=== PATIENT | female | born 1940 | race Caucasian/White ===

== ENCOUNTER 2018-01-29 07:30 | Outpatient (CLI) | payer OTHER | END 2018-01-29 08:16 | disposition home or self-care (01) | LOC: LAB 07:30 | DX: I10 Essential (primary) hypertension (principal); E11.9 Type 2 diabetes mellitus without complications; E03.9 Hypothyroidism, unspecified; E78.2 Mixed hyperlipidemia; N39.0 Urinary tract infection, site not specified; R82.79 Other abnormal findings on microbiological examination of urine; M19.90 Unspecified osteoarthritis, unspecified site ==

== ENCOUNTER → 2018-02-21 | Emergency (ER) | payer OTHER ==
[~2018-02-21] VITALS: Ht 147.3 cm; Wt 81.6 kg
[~2018-02-21] MED LIST: AMLODIPINE-VAL1 EAC3; CILOSTAZOL100 MG PO; FORTAMET500 MG; PROLIA60 MG/1 ML; PROTONIX40 M1 PO; TEKTURNA HCT 31 EAC1; ZETIA10 MG; ZOCOR20 MG
== END | disposition home or self-care (01) ==
LOC: ER 06:29
DX: R19.7 Diarrhea, unspecified (principal); R53.81 Other malaise

== ENCOUNTER 2018-04-12 06:22 | Outpatient (CLI) | payer OTHER | END 2018-04-12 06:37 | disposition home or self-care (01) | LOC: RAD 06:22 → LAB 06:22 → RAD 06:37 | DX: D64.89 Other specified anemias (principal); D68.8 Other specified coagulation defects; E03.8 Other specified hypothyroidism; R07.1 Chest pain on breathing ==

== ENCOUNTER → 2018-04-29 | Outpatient (CLI) | payer OTHER ==
[~2018-04-29] MED LIST changes: +AZOR 10-20 MG1 EACH PO; +GLYBURID-METFO1 EACH PO; +INTESTINEX680 M1 PO; +TEKTURNA HCT 31 EAC1 PO; +TRIPLE FLEX CA1 EACH; +ZOCOR20 MG PO
== END | disposition home or self-care (01) ==
LOC: NUCLEAR 11:00
DX: M81.0 Age-related osteoporosis without current pathological fracture (principal)

== ENCOUNTER 2018-05-02 09:00 | Inpatient (IN) | payer OTHER ==
[~2018-05-02] VITALS: Ht 157.5 cm; Wt 68.0 kg
[~2018-05-02 09:00] MED LIST changes: -AZOR 10-20 MG1 EACH PO; -GLYBURID-METFO1 EACH PO; -INTESTINEX680 M1 PO; -TEKTURNA HCT 31 EAC1 PO; -TRIPLE FLEX CA1 EACH; -ZOCOR20 MG PO
[2018-05-02] MEDS ORDERED: GLYBURID-METFO1 EACH PO (11:08)
[2018-05-02] MEDS ORDERED: TEKTURNA HCT 31 EAC1 PO (11:08)
[2018-05-02] MEDS ORDERED: AZOR 10-20 MG1 EACH PO (11:08)
[2018-05-02] MEDS ORDERED: INTESTINEX680 M1 PO (11:09)
[2018-05-02] MEDS ORDERED: ZOCOR20 MG PO (11:09)
[2018-05-02] MEDS ORDERED: TRIPLE FLEX CA1 EACH (11:10)
[2018-05-09] MEDS ORDERED: COLACE100 MG PO (13:40)
[2018-05-09] MEDS ORDERED: PERCOCET 5-3251 EACH PO (13:41)
[2018-05-09] MEDS ORDERED: RESTORIL30 M1 PO (13:41)
== END 2018-05-10 16:16 | DRG 454 ==
LOC: O/R 05-09 05:35 → PED 05-09 05:35 → SURH 05-09 07:00 → PED 05-09 14:46
PROVIDERS: Orthopaedic Surgery Orthopaedic Surgery of the Spine
PROC: 0RG2071 Fusion of 2 or more Cervical Vertebral Joints with Autologous Tissue Substitute, Posterior Approach, Posterior Column, Open Approach (ICD-10-PCS; 2018-05-09)
PROC: 0RT30ZZ Resection of Cervical Vertebral Disc, Open Approach (ICD-10-PCS; 2018-05-09)
PROC: 07DS3ZZ Extraction of Vertebral Bone Marrow, Percutaneous Approach (ICD-10-PCS; 2018-05-09)
PROC: 0RG20A0 Fusion of 2 or more Cervical Vertebral Joints with Interbody Fusion Device, Anterior Approach, Anterior Column, Open Approach (ICD-10-PCS; principal; 2018-05-09 07:00)
DX: M50.01 Cervical disc disorder with myelopathy, high cervical region (principal); M47.12 Other spondylosis with myelopathy, cervical region; G83.82 Anterior cord syndrome; M48.02 Spinal stenosis, cervical region; E11.9 Type 2 diabetes mellitus without complications; I10 Essential (primary) hypertension; K52.89 Other specified noninfective gastroenteritis and colitis

== ENCOUNTER 2018-07-18 07:22 | Outpatient (CLI) | payer OTHER ==
[~2018-07-18 07:22] MED LIST changes: +AZOR 10-20 MG1 EACH PO; +COLACE100 MG PO; +GLYBURID-METFO1 EACH PO; +INTESTINEX680 M1 PO; +PERCOCET 5-3251 EACH PO; +RESTORIL30 M1 PO; +TEKTURNA HCT 31 EAC1 PO; +TRIPLE FLEX CA1 EACH; +ZOCOR20 MG PO
== END 2018-07-18 07:24 | disposition home or self-care (01) ==
LOC: RAD 07:22
DX: M50.00 Cervical disc disorder with myelopathy, unspecified cervical region (principal); Z98.1 Arthrodesis status

== ENCOUNTER → 2018-07-29 06:29 | Outpatient (CLI) | payer OTHER | END | disposition home or self-care (01) | LOC: LAB 06:29 | DX: M81.0 Age-related osteoporosis without current pathological fracture (principal); E21.2 Other hyperparathyroidism ==

== ENCOUNTER 2018-07-29 08:36 | Outpatient (CLI) | payer OTHER | END 2018-07-29 08:43 | disposition home or self-care (01) | LOC: SONOGRAMA 08:36 | DX: M65.811 Other synovitis and tenosynovitis, right shoulder (principal) ==

== ENCOUNTER 2018-08-16 04:56 | Emergency (ER) | payer OTHER ==
[~2018-08-16] VITALS: Ht 152.4 cm; Wt 79.4 kg
== END 2018-08-16 09:16 | disposition home or self-care (01) ==
LOC: ER 04:56
DX: S33.5XXA Sprain of ligaments of lumbar spine, initial encounter (principal); W18.39XA Other fall on same level, initial encounter; Y93.89 Activity, other specified; Y92.098 Other place in other non-institutional residence as the place of occurrence of the external cause; Y99.8 Other external cause status

== ENCOUNTER 2019-01-14 10:57 | Outpatient (CLI) | payer OTHER | END 2019-01-14 11:20 | disposition home or self-care (01) | LOC: RAD 10:57 | DX: M50.00 Cervical disc disorder with myelopathy, unspecified cervical region (principal); Z98.1 Arthrodesis status ==

== ENCOUNTER 2019-07-10 11:17 | Outpatient (CLI) | payer OTHER | END 2019-07-10 11:18 | disposition home or self-care (01) | LOC: RAD 11:17 | DX: M48.02 Spinal stenosis, cervical region (principal); M50.00 Cervical disc disorder with myelopathy, unspecified cervical region; Z98.1 Arthrodesis status ==

== ENCOUNTER 2019-10-17 07:09 | Outpatient (CLI) | payer OTHER | END 2019-10-17 07:13 | disposition home or self-care (01) | LOC: LAB 07:09 | DX: E78.2 Mixed hyperlipidemia (principal); I10 Essential (primary) hypertension; E11.9 Type 2 diabetes mellitus without complications; E03.8 Other specified hypothyroidism ==

== ENCOUNTER 2019-11-13 07:51 | Outpatient (CLI) | payer OTHER | END 2019-11-13 07:54 | disposition home or self-care (01) | LOC: MAMO-SONO 07:51 | DX: Z12.31 Encounter for screening mammogram for malignant neoplasm of breast (principal); Z87.898 Personal history of other specified conditions; N63.11 Unspecified lump in the right breast, upper outer quadrant ==

== ENCOUNTER 2019-12-07 15:15 | Outpatient (CLI) | payer OTHER | END 2019-12-07 15:20 | disposition home or self-care (01) | LOC: LAB 15:15 | DX: Z00.00 Encounter for general adult medical examination without abnormal findings (principal) ==

== ENCOUNTER 2019-12-11 07:21 | Outpatient (CLI) | payer OTHER | END 2019-12-11 09:36 | disposition home or self-care (01) | LOC: TOM 07:21 | DX: K80.80 Other cholelithiasis without obstruction (principal); K63.5 Polyp of colon; N28.89 Other specified disorders of kidney and ureter ==

== ENCOUNTER 2020-04-26 06:09 | Outpatient (CLI) | payer OTHER | END 2020-04-26 06:20 | disposition home or self-care (01) | LOC: LAB 06:09 | PROVIDERS: ATTEND Internal Medicine Cardiovascular Disease | DX: E03.8 Other specified hypothyroidism (principal); I10 Essential (primary) hypertension; E11.9 Type 2 diabetes mellitus without complications; E78.2 Mixed hyperlipidemia ==

== ENCOUNTER 2020-10-25 11:27 | Emergency (ER) | payer OTHER ==
[~2020-10-25] VITALS: Ht 157.5 cm; Wt 88.9 kg
[2020-10-25] MEDS ORDERED: OSTEO BI-FLEX1 EAC1 (11:44)
[2020-10-25] MEDS ORDERED: TURMERIC 500 M1 EACH (11:44)
[2020-10-25] MEDS ORDERED: BAYER CHILDREN'81 MG (11:45)
== END 2020-10-25 19:51 | disposition home or self-care (01) ==
LOC: ER 11:27
DX: S52.252A Displaced comminuted fracture of shaft of ulna, left arm, initial encounter for closed fracture (principal); S52.122A Displaced fracture of head of left radius, initial encounter for closed fracture; S52.132A Displaced fracture of neck of left radius, initial encounter for closed fracture; S52.572A Other intraarticular fracture of lower end of left radius, initial encounter for closed fracture; S53.195A Other dislocation of left ulnohumeral joint, initial encounter; S50.11XA Contusion of right forearm, initial encounter; S00.83XA Contusion of other part of head, initial encounter; W01.0XXA Fall on same level from slipping, tripping and stumbling without subsequent striking against object, initial encounter; Y93.01 Activity, walking, marching and hiking; Y92.488 Other paved roadways as the place of occurrence of the external cause; Y99.8 Other external cause status

== ENCOUNTER 2020-11-25 13:06 | Outpatient (CLI) | payer OTHER ==
[~2020-11-25 13:06] MED LIST changes: +BAYER CHILDREN'81 MG; +OSTEO BI-FLEX1 EAC1; +TURMERIC 500 M1 EACH
== END 2020-11-25 13:14 ==
LOC: RAD 13:06
PROVIDERS: ATTEND Orthopaedic Surgery
DX: M25.522 Pain in left elbow (principal); S52.032D Displaced fracture of olecranon process with intraarticular extension of left ulna, subsequent encounter for closed fracture with routine healing

== ENCOUNTER 2020-12-16 09:56 | Outpatient (CLI) | payer OTHER | END 2020-12-16 10:03 | disposition home or self-care (01) | LOC: RAD 09:56 | PROVIDERS: ATTEND Orthopaedic Surgery | DX: S52.032D Displaced fracture of olecranon process with intraarticular extension of left ulna, subsequent encounter for closed fracture with routine healing (principal) ==

== ENCOUNTER 2021-02-17 09:55 | Outpatient (CLI) | payer OTHER | END 2021-02-17 10:07 | disposition home or self-care (01) | LOC: RAD 09:55 | PROVIDERS: ATTEND Orthopaedic Surgery | DX: S52.032D Displaced fracture of olecranon process with intraarticular extension of left ulna, subsequent encounter for closed fracture with routine healing (principal) ==

== ENCOUNTER 2021-06-09 13:56 | Outpatient (CLI) | payer OTHER | END 2021-06-09 14:01 | disposition home or self-care (01) | LOC: RAD 13:56 | PROVIDERS: ATTEND Physical Medicine & Rehabilitation | DX: S52.622D Torus fracture of lower end of left ulna, subsequent encounter for fracture with routine healing (principal); S92.404 Nondisplaced unspecified fracture of right great toe ==